=== PATIENT | female | born 1980 | race African-American/Black ===

== ENCOUNTER 2018-01-12 11:31 | Emergency (ER) | payer BC ==
[~2018-01-12] VITALS: Ht 162.6 cm; Wt 90.7 kg
[2018-01-12 12:25] LABS: ABSOLUTE BASOPHILS 0.1 thou/uL (0.0-0.2); ABSOLUTE EOSINOPHILS 0.4 thou/uL (0.0-0.7); ABSOLUTE LYMPHOCYTES 2.8 thou/uL (0.8-5.3); ABSOLUTE MONOCYTES 0.8 thou/uL (0.0-1.2); ABSOLUTE NEUTROPHILS 5.8 thou/uL (1.6-8.1); BASOPHILS 0.9 %; EOSINOPHILS 4.1 %; HEMATOCRIT 32.5 % (37.0-47.0); LYMPHOCYTES 28.3 %; MCH 20.9 pg (26.0-34.0); MCHC 30.8 g/dL (28.0-37.0); MONOCYTES 7.9 %; MPV 6.7 fl. (7.2-11.1); NUCLEATED RBCS 0 /100WBC; PLATELET COUNT* 507 thou/uL (150-400); POLYS 58.8 %; RBC 4.78 mil/uL (4.20-5.00); RDW-CV 17.9 % (10.5-14.5); WBC 9.9 thou/uL (4.0-11.0)
[2018-01-12 12:33] LABS: ANION GAP 7 mmol/L (7-16); BUN 10 mg/dL (7-18); CALCIUM 8.9 mg/dL (8.5-10.1); CHLORIDE 104 mmol/L (98-107); CO2 27 mmol/L (21-32); CREATININE 0.8 mg/dL (0.6-1.3); GLUCOSE 128 mg/dL (70-99); POTASSIUM 3.7 mmol/L (3.5-5.1); SODIUM 138 mmol/L (136-145)
[2018-01-12 12:40] LABS: ALBUMIN 3.6 g/dL (3.4-5.0); ALKALINE PHOSPHATASE 98 U/L (46-116); SGOT 18 U/L (15-37); SGPT 24 U/L (30-65); TOTAL BILIRUBIN 0.2 mg/dL (<0.1-1.0); TROPONIN-I LEVEL <0.06 ng/mL (<0.06)
[2018-01-12 12:52] LABS: ANISOCYTOSIS 1+; MICROCYTES 2+; PLATELET ESTIMATE INCREASED
[2018-01-12 12:53] LABS: HYPOCHROMASIA 2+
[2018-01-12 12:54] LABS: OVALOCYTES 1+
[2018-01-12 14:03] VITALS: BP 127/75
--- NOTE | 2018-01-12 15:38 | EKG ---
[place] [address] ELECTROCARDIOGRAM REPORT Name: TRINIDAD LOPEZ Room: [facility]#: [id number] Admission: 01/12/18 Attend Phys: Discharge: 01/12/18 Date of : 76 Report #: [id number] THIS REPORT FOR: //name// [facility] ED Test Date: 2018-01-12 Test Time: 11:37:21 Pat Name: TRINIDAD LOPEZ Department: Room: Gender: F Safety Instructor: RENA : 1980 Requested By: Adriana Tyson Order Number: [id number] MD: Hamzah Bridges Measurements Intervals [place] Rate: 70 P: 66 DE: 170 QRS: 40 QRSD: 93 T: 56 QT: 381 QTc: 412 Interpretive Statements Sinus rhythm Baseline wander in lead(s) V6 No previous ECG available for comparison Electronically Signed On 01-12-2018 15:38:47 CDT by Hamzah Bridges [email or web address] <ELECTRONICALLY SIGNED> By: Hamzah Bridges MD, [facility] 01/12/18 [id number] Hamzah Bridges MD, FACC /EPI
== END 2018-01-12 14:04 | disposition home or self-care (01) ==
LOC: M.ERS 11:31
PROVIDERS: Nurse Practitioner Family
DX: R07.89 Other chest pain (principal); J45.909 Unspecified asthma, uncomplicated; F17.200 Nicotine dependence, unspecified, uncomplicated